=== PATIENT | male | born 1930 | race Two or more races ===

== ENCOUNTER 2018-09-04 21:07 | Inpatient (IN) | payer MEDICARE ==
[~2018-09-04] VITALS: Ht 180.3 cm; Wt 63.8 kg
--- NOTE | 2018-09-04 21:20 | NUR ---
TO BED 2 BIB PARAMEDICS C/O GENERALIZED BODY PAIN S/P GLF, PT DENIES KO. PT AAOX4 NO ACUTE DISTRESS NOTED, RESP EVEN AND UNLABORED. PLACE PT ON CARDIAC MONITORING, CONTINUOUS POX. PENDING ER MD STAHL.
--- NOTE | 2018-09-04 21:24 | NUR ---
PT AT BEDSIDE.
--- NOTE | 2018-09-04 23:11 | NUR ---
ER MD AT BEDSIDE TO EVAL PT WITH ORDERS RECEIVED. WILL CARRY OUT ORDERS.
--- NOTE | 2018-09-04 23:51 | NUR ---
PT TRANSPORTED TO RADIOLOGY FOR CT HEAD.
[2018-09-05] LABS: BASOPHILS % (AUTO) 0.2 % (0.0-2.0); EOSINOPHILS % (AUTO) 0.5 % (0.0-6.0); HEMATOCRIT 30 % (39-51); HEMOGLOBIN 10.1 g/dL (13.5-17.5); LYMPHOCYTES # (AUTO) 0.9 /CMM (0.8-4.8); LYMPHOCYTES % (AUTO) 8.8 % (20.0-44.0); MEAN CORPUSCULAR HGB CONC 33 g/dl (31.0-36.0); MEAN CORPUSCULAR VOLUME 93 fL (80-96); MONOCYTES # (AUTO) 0.6 /CMM (0.1-1.30); MONOCYTES % (AUTO) 6.2 % (2.0-12.0); NEUTROPHILS # (AUTO) 8.5 /CMM (1.8-8.9); NEUTROPHILS % (AUTO) 84.3 % (43.0-81.0); PLATELET COUNT (AUTO) 106 /CMM (150-450); RED BLOOD CELL COUNT(AUTO) 3.25 MIL/uL (4.5-6.0); WHITE BLOOD COUNT (AUTO) 10.1 K/uL (4.3-11.0)
[2018-09-05 00:11] LABS: CALCIUM, SERUM 9.2 mg/dL (8.5-10.1); CARBON DIOXIDE 20 mmol/L (21-32); CHLORIDE 110 mmol/L (98-107); CREATININE 4.8 mg/dL (0.6-1.3); GLUCOSE 97 mg/dL (74-106); SODIUM SERUM 140 mmol/L (136-145)
[2018-09-05 00:14] LABS: UREA NITROGEN, BLOOD 109 mg/dL (7-18)
--- NOTE | 2018-09-05 00:14 | NUR ---
BUN 109
[2018-09-05 00:17] LABS: ALKALINE PHOSPHATASE 68 U/L (46-116); BILIRUBIN,DIRECT 0.1 mg/dL (0.0-0.2); BILIRUBIN,TOTAL 0.6 mg/dL (0.2-1.0)
[2018-09-05 00:18] LABS: ALANINE AMINOTRANSFERASE < 6 U/L (12-78); ASPARTATE AMINOTRANSFERASE 16 U/L (15-37); TOTAL PROTEIN, SERUM 6.5 g/dL (6.4-8.2)
[2018-09-05] MEDS ORDERED: ACETAMINOPHEN 325 MG TABLET PO PRN (01:30)
[2018-09-05] MEDS ORDERED: HYDROCODONE/APAP 5/325MG 1 EACH TABLET PO PRN (01:30)
[2018-09-05] MEDS ORDERED: ONDANSETRON HCL/PF 4 MG/2 ML VIAL IVP PRN (01:30)
[2018-09-05] MEDS ORDERED: TEMAZEPAM 15 MG CAPSULE PO PRN (01:30)
[2018-09-05] MEDS ORDERED: MAGNESIUM HYDROXIDE 30 ML UDC PO PRN (01:30)
[2018-09-05] MEDS ORDERED: MAG HYDROX/AL HYDROX/SIMETH 30 ML UDC PO PRN (01:30)
[2018-09-05] MEDS ORDERED: MORPHINE SULFATE INJ 2 MG/ML DISP.SYRIN IV PRN (01:30)
[2018-09-05 01:44] LABS: APPEARANCE,URINE CLEAR (CLEAR); BILIRUBIN,URINE NEGATIVE (NEGATIVE); BLOOD, URINE 2+ Ery/uL (NEGATIVE); COLOR,URINE YELLOW (YELLOW); KETONES,URINE NEGATIVE (NEGATIVE); LEUKOCYTE ESTERASE ,URINE NEGATIVE (NEGATIVE); NITRITE, URINE NEGATIVE (NEGATIVE); PROTEIN,URINE 2+ mg/dl (NEGATIVE); UGLUCOSE NEGATIVE (NEGATIVE); UROBILINOGEN,URINE 0.2 EU/dL (0.2)
[2018-09-05 01:51] LABS: BACTERIA,URINE Few /HPF (None Seen); RBC,URINE 21-50 /HPF (0-2); SQUAMOUS EPITHELIAL CELL,UR Rare /HPF (None Seen)
--- NOTE | 2018-09-05 02:13 | NUR ---
REPORT CALLED TO PHYSICIAN ALLERGIST IMMUNOLOGISTZAK WU. WILL TRASNPORT PT VIA ACLS PROTOCOL.
--- NOTE | 2018-09-05 02:45 | NUR ---
ADMISSION NOTE PATIENT ARRIVED FROM ER WITH . PATIENT BEING ADMITTED FOR [facility]NCOPE TO [facility] WITH ORDERS FOR TELEMETRY. TELE APPLIED PATIENT IS AFIB IN THE 80'S PER ACCOUNTANT. NENA AT THE BEDSIDE ADMISSION INTERVIEW CONDUCTED WITH HER AND THE PATIENT. 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 PATIENT HAS 18 GAUGE TO RIGHT FOREAMR THAT IS PATENT AND INTACT NO S/S OF COMPLICATIONS. PATIENT ON RA AND IS IN NO RESP DISTRESS. DENIES PAIN. NEW ORDERS RECIEVED. PATIENT IS HOPING TO HAVE PATIENT TRANSFERRED TO [facility] WHERE DR. FRANK WAS SCHEDULED TO PLACE A HD CATH FOR DIALYSIS USE SO PATIENT CAN START DIALYSIS. IS HOPING TO HAVE PATIENT TRANSFERRED THERE TO KEEP APPOINTMENT. [facility] AWARE PER HIS NOTES.
--- NOTE | 2018-09-05 06:30 | NUR ---
RN PM CLOSING NOTE PATIENT RESTING IN BED IN NO APPARENT DISTRESS. BREATHING EVEN AND UNLABORED ON RA. TELE STILL REPORTING AFIB IN THE 80'S. SAFETY PRECAUTIONS IN PLACE. BED DOWN LOCKED SRX2 CALL LIGHT IN REACH.
--- NOTE | 2018-09-05 07:20 | NUR ---
DIRECTOR OF CONSTRUCTION OPENING NOTES RECEIVED PATIENT IN BED ASLEEP, AROUSABLE. HOB ELEVATED. NO SOB. ALERT AND ORIENTED X3. SPEAKS LIMITED TURKISH BUT ABLE TO UNDERSTAND OTHERS AND MAKE SELF UNDERSTOOD. DENIES ANY C/O PAIN NOR DISCOMFORT AT THIS TIME. RFA #[id number] INTACT AND PATENT. KINJAL AV FISTULA WITH DRESSING INTACT WITH GOOD (+) BRUIT/THRILL. NOTED SLIGHT SWELLING (NON-PITTING) TO LEFT MEDIAL ARM (MEDIAL SITE OF AV FISTULA), PATIENT DENIES ANY C/O PAIN NOR DISCOMFORT AT SITE, ELEVATED WITH PILLOW. BED IN LOWEST POSITION . ABLE TO MAKE SIMPLE NEEDS KNOWN. CALL LIGHT WITHIN REACH.
[2018-09-05 08:12] VITALS: BP 114/85
--- NOTE | 2018-09-05 10:15 | NUR ---
PAROLE SUPERVISOR NOTES PHYSICAL THERAPY WORKED WITH PATIENT, PATIENT REQUIRES MAXIMUM ASSIST WITH SITTING EDGE OF BED. NON-AMBULATORY.
--- NOTE | 2018-09-05 10:41 | NUR ---
EMPLOYEE SERVICES MANAGER NOTES SEEN BY DR. BEDOYA, ASSESSED LEFT ARM AV FISTULA AND SPOKE TO PATIENT AND REGARDING RECENT LABS BUN 109 AND CREA [address].8. PER DR. BEDOYA, NO CONCERN AT THIS TIME AND WILL JUST MONITOR.
--- NOTE | 2018-09-05 11:00 | NUR ---
CHIEF INSPECTOR NOTES XRAY OF RIGHT HIP AND RIB DONE.
--- NOTE | 2018-09-05 18:55 | NUR ---
BELT LOOP MACHINE OPERATOR CLOSING/ DISCHARGE NOTES PATIENT IN BED AWAKE. HOB ELEVATED. NO SOB. ALERT AND ORIENTED X2-3 BUT WITH PERIODS OF CONFUSION OBSERVED. PATIENT REQUIRES FREQUENT REMINDERS AND REORIENTATION. PER , PATIENT DOES HAVE EPISODES OF CONFUSION. DENIES ANY C/O PAIN NOR DISCOMFORT AT THIS TIME. RFA #18 INTACT AND PATENT. KINJAL AV FISTULA WITH DRESSING INTACT WITH GOOD (+) BRUIT/THRILL. BED IN LOWEST POSITION . PATIENT SCHEDULED FOR TRANSFER TO [facility] PER PATIENT'S REQUEST. CALLED [facility] AND SPOKE TO GIRISH AND REPORT GIVEN. DISCHARGE INSTRUCTIONS AND PACKET ALONG WITH CD GIVEN TO . PER SHE WILL GIVE IT TO THE NURSE AT [facility]. ALL BELONGINGS ACCOUNTED FOR AND PER , "I TOOK ALL OF HIS STUFF AND BROUGHT IT IN THE CAR." SALINE LOCK REMOVED WITH CATHETER TIP IN PLACE. PATIENT LEFT IN STABLE CONDITION VIA GURNEY ACCOMPANIED BY 2 EMT PERSONNEL. REPORT ALSO GIVEN TO EMT PERSONNEL. PER , SHE FOLLOW TO [facility] VIA PRIVATE CAR.
== END 2018-09-05 18:57 | disposition short-term general hospital (02) | DRG 640 ==
LOC: EDBD 21:11 → ER 21:11 → TELE 09-05 02:30 → MED 09-05 13:18
PROVIDERS: ADMIT Hospitalist; ATTEND Hospitalist
DX: E86.9 Volume depletion, unspecified (principal); E43 Unspecified severe protein-calorie malnutrition; N18.6 End stage renal disease; Z68.1 Body mass index [BMI] 19.9 or less, adult; D69.6 Thrombocytopenia, unspecified; E03.9 Hypothyroidism, unspecified; D64.9 Anemia, unspecified; E78.5 Hyperlipidemia, unspecified; Z86.73 Personal history of transient ischemic attack (TIA), and cerebral infarction without residual deficits; E11.22 Type 2 diabetes mellitus with diabetic chronic kidney disease; I48.91 Unspecified atrial fibrillation; J44.9 Chronic obstructive pulmonary disease, unspecified; R29.6 Repeated falls; M85.9 Disorder of bone density and structure, unspecified; I70.0 Atherosclerosis of aorta; Z98.890 Other specified postprocedural states; Z85.46 Personal history of malignant neoplasm of prostate; M25.551 Pain in right hip; W18.11XA Fall from or off toilet without subsequent striking against object, initial encounter; Y92.002 Bathroom of unspecified non-institutional (private) residence as the place of occurrence of the external cause; Z90.79 Acquired absence of other genital organ(s); M41.9 Scoliosis, unspecified
CPT/HCPCS: 36415; 70450-TC; 71045-TC; 71100-TC; 73502; 80048-TC; 80076-TC; 81000-TC; 84484-TC; 85025-TC; 85730-TC; 87081-TC; 93307-TC; 97530-TC; G0378